=== PATIENT | male | born 1990 | race African-American/Black ===

== ENCOUNTER 2016-09-21 20:00 | Emergency (ER) | payer OTHER ==
[2016-09-21 19:43] LABS: URINE SOURCE CLEAN CATCH
[2016-09-21 19:45] LABS: URINE APPEARANCE CLEAR; URINE BILIRUBIN NEG (NEG); URINE BLOOD NEG (NEG); URINE COLOR YELLOW; URINE GLUCOSE NEG (NORM); URINE KETONE 1+ (NEG); URINE LEUKOCYTE ESTERASE NEG (NEG); URINE NITRATE NEG (NEG); URINE PROTEIN TRACE (NEG)
[2016-09-21 19:46] LABS: MICRO INDICATED? NO
[2016-09-23 20:50] LABS: CHLAMYDIA TRACH Not Detected (Not Detected); N GONOR Not Detected (Not Detected)
== END 2016-09-21 20:20 | disposition home or self-care (01) ==
LOC: SED 20:00
PROVIDERS: Physician Assistant
DX: R30.0 Dysuria (principal); R03.0 Elevated blood-pressure reading, without diagnosis of hypertension
CPT/HCPCS: 81003; 87491; 87591; 96372; 99283; J0696